=== PATIENT | male | born 2000 | race African-American/Black ===

== ENCOUNTER 2023-04-16 04:39 | Emergency (ER) | payer MEDICAID ==
[~2023-04-16] VITALS: Ht 167.6 cm; Wt 68.0 kg
[2023-04-16 04:45] VITALS: O2SAT 100
[2023-04-16] MEDS ORDERED: KETOROLAC 30MG/ML VIAL IV STA (05:27)
[2023-04-16] MEDS ORDERED: SODIUM CHLORIDE 0.9% 1,000 ML IV ONE (05:30)
[2023-04-16 06:10] LABS: BASOPHILS % 0.7 % (0.0-2.0); EOSINOPHILS % 6.7 % (0.0-5.0); HEMATOCRIT. 42.7 % (42.0-52.0); HEMOGLOBIN. 14.1 g/dL (14.0-18.0); LYMPHOCYTES % 28.6 % (20.0-50.0); MEAN CORPUSCULAR HEMOGLOBIN 28.8 pg (28.0-32.0); MEAN CORPUSCULAR HGB CONC 33.1 g/dL (31.0-37.0); MEAN PLATELET VOLUME 7.9 fl (7.4-10.4); MONOCYTES % 5.7 % (2.0-8.0); NEUTROPHILS % 58.3 % (40.0-76.0); PLATELET 202 x1000/uL (130-400); RED BLOOD CELL COUNT 4.91 mill/uL (4.7-6.1); RED CELL DISTRIBUTION WIDTH 14.7 % (11.6-14.6); WHITE BLOOD COUNT 5.5 x1000/uL (4.5-11.0)
[2023-04-16 07:26] LABS: INDEX HEMOLYSI 2 (1-3); INDEX ICTERIC 1 (1-4); INDEX LIPEMIC 1 (1-3)
[2023-04-16 07:28] LABS: CALCIUM 8.8 mg/dL (8.5-10.1)
[2023-04-16 07:42] VITALS: BP 160/90; PULSE 96; RESP 18
[2023-04-16] MEDS ORDERED: KETOROLAC 30MG/ML VIAL IV SCH (07:45)
[2023-04-16] MEDS ORDERED: IBUP-2029 MT (07:47)
[2023-04-16 09:23] LABS: ALANINE AMINOTRANSFERASE 21 IU/L (13-61); ALBUMIN 3.7 g/dL (3.4-5.0); ASPARTATE AMINOTRANSFERASE 20 IU/L (15-37); BILIRUBIN TOTAL 0.2 mg/dL (0.1-1.0); CARBON DIOXIDE 25 mEq/L (21-32); CREATININE 0.8 mg/dL (0.6-1.3); GLUCOSE 115 mg/dL (70-105); UREA NITROGEN BLOOD 16 mg/dL (7-21)
[2023-04-16 12:12] LABS: CHLORIDE 110 mEq/L (98-107); POTASSIUM 3.7 mEq/L (3.5-5.1); SODIUM 141 mEq/L (136-145)
== END 2023-04-16 08:13 | disposition home or self-care (01) ==
LOC: ER 04:39
DX: S70.01XA Contusion of right hip, initial encounter (principal); S80.02XA Contusion of left knee, initial encounter; V49.9XXA Car occupant (driver) (passenger) injured in unspecified traffic accident, initial encounter; Y93.89 Activity, other specified; Y92.89 Other specified places as the place of occurrence of the external cause; Y99.8 Other external cause status
CPT/HCPCS: 80053; 85025; 36415; 73502; 73552; 72100; 73562; 96361; 96374; 96376; 99284; J1885; J7030; Z7610 ×2